=== PATIENT | female | born 1940 | race Two or more races ===

== ENCOUNTER 2018-01-27 13:56 | Outpatient (CLI) | payer OTHER | END 2018-01-27 14:13 | disposition home or self-care (01) | LOC: SONOGRAMA 13:56 | DX: E04.2 Nontoxic multinodular goiter (principal) ==

== ENCOUNTER 2018-02-24 07:53 | Outpatient (CLI) | payer OTHER | END 2018-02-24 08:00 | disposition home or self-care (01) | LOC: SONOGRAMA 07:53 | DX: E04.2 Nontoxic multinodular goiter (principal) ==

== ENCOUNTER 2019-01-16 10:49 | Emergency (ER) | payer OTHER ==
[~2019-01-16] VITALS: Ht 162.6 cm; Wt 54.4 kg
== END 2019-01-16 13:59 | disposition home or self-care (01) ==
LOC: ER 10:49
DX: S42.221A 2-part displaced fracture of surgical neck of right humerus, initial encounter for closed fracture (principal); W18.09XA Striking against other object with subsequent fall, initial encounter; Y93.89 Activity, other specified; Y92.488 Other paved roadways as the place of occurrence of the external cause; Y99.8 Other external cause status

== ENCOUNTER 2019-01-18 11:44 | Outpatient (CLI) | payer OTHER ==
[2019-01-20] MEDS ORDERED: SYNTHROID75 MCG (09:53)
[2019-01-20] MEDS ORDERED: SYNTHROID50 MCG (09:54)
[2019-01-20] MEDS ORDERED: LEVOTHYROXINE PO (11:06)
[2019-01-20] MEDS ORDERED: FOSAMAX PO (11:06)
== END 2019-01-18 15:14 | disposition home or self-care (01) ==
LOC: TOM 11:44
DX: S42.221A 2-part displaced fracture of surgical neck of right humerus, initial encounter for closed fracture (principal)
CPT/HCPCS: 73202; Q9965

== ENCOUNTER 2019-01-23 07:31 | Day surgery (SDC) | payer OTHER ==
[~2019-01-23 07:31] MED LIST: FOSAMAX PO; LEVOTHYROXINE PO; SYNTHROID50 MCG; SYNTHROID75 MCG
== END 2019-01-23 15:15 | disposition home or self-care (01) ==
LOC: CIR.AMB 07:31
DX: S42.231A 3-part fracture of surgical neck of right humerus, initial encounter for closed fracture (principal); S42.291A Other displaced fracture of upper end of right humerus, initial encounter for closed fracture
CPT/HCPCS: 23615; C1776

== ENCOUNTER 2019-02-11 08:23 | Outpatient (CLI) | payer OTHER | END 2019-02-11 13:03 | disposition home or self-care (01) | LOC: LAB 08:23 | DX: D64.89 Other specified anemias (principal); E88.89 Other specified metabolic disorders; D68.8 Other specified coagulation defects; N39.0 Urinary tract infection, site not specified; Z22.322 Carrier or suspected carrier of Methicillin resistant Staphylococcus aureus; B96.89 Other specified bacterial agents as the cause of diseases classified elsewhere ==

== ENCOUNTER 2019-02-14 07:24 | Outpatient (CLI) | payer OTHER | END 2019-02-14 07:32 | disposition home or self-care (01) | LOC: RAD 07:24 | DX: S42.221D 2-part displaced fracture of surgical neck of right humerus, subsequent encounter for fracture with routine healing (principal) ==

== ENCOUNTER → 2019-02-20 | Day surgery (SDC) | payer OTHER | END | disposition home or self-care (01) | LOC: ADM 02-15 11:15 → CIR.AMB 07:00 | DX: T84.84XA Pain due to internal orthopedic prosthetic devices, implants and grafts, initial encounter (principal) ==

== ENCOUNTER → 2019-06-08 07:33 | Outpatient (CLI) | payer OTHER | END | disposition home or self-care (01) | LOC: LAB 07:33 | DX: E56.1 Deficiency of vitamin K (principal); E55.9 Vitamin D deficiency, unspecified; E88.89 Other specified metabolic disorders; M81.8 Other osteoporosis without current pathological fracture; E21.2 Other hyperparathyroidism; M85.88 Other specified disorders of bone density and structure, other site ==

== ENCOUNTER → 2019-06-08 | Outpatient (CLI) | payer OTHER | END | disposition home or self-care (01) | LOC: RAD 09:38 | DX: S40.2 Other superficial injuries of shoulder (principal) ==

== ENCOUNTER → 2019-06-15 10:26 | Outpatient (CLI) | payer OTHER | END | disposition home or self-care (01) | LOC: NUCLEAR 10:26 | DX: M81.0 Age-related osteoporosis without current pathological fracture (principal) ==

== ENCOUNTER 2019-11-25 05:51 | Emergency (ER) | payer OTHER ==
[~2019-11-25] VITALS: Ht 162.6 cm; Wt 50.8 kg
[2019-11-25] MEDS ORDERED: ORASEP SPRAY30 ML MM (07:32)
== END 2019-11-25 07:54 | disposition home or self-care (01) ==
LOC: ER 05:51
DX: J02.9 Acute pharyngitis, unspecified (principal)

== ENCOUNTER 2019-12-07 15:59 | Emergency (ER) | payer OTHER ==
[~2019-12-07] VITALS: Ht 162.6 cm; Wt 49.9 kg
[~2019-12-07 15:59] MED LIST changes: +ORASEP SPRAY30 ML MM
[2019-12-07] MEDS ORDERED: FOSAMAX70 MG (16:14)
[2019-12-07] MEDS ORDERED: CLARITIN10 MG PO (16:51)
[2019-12-07] MEDS ORDERED: ZITHROMAX500 MG PO (16:51)
== END 2019-12-07 17:33 | disposition home or self-care (01) ==
LOC: ER 15:59
DX: R07.0 Pain in throat (principal)

== ENCOUNTER 2021-10-25 08:37 | Outpatient (CLI) | payer OTHER ==
[~2021-10-25 08:37] MED LIST changes: +CLARITIN10 MG PO; +FOSAMAX70 MG; +ZITHROMAX500 MG PO
== END 2021-10-25 08:41 | disposition home or self-care (01) ==
LOC: RAD 08:37
PROVIDERS: ATTEND Surgery
DX: R07.89 Other chest pain (principal); K43.2 Incisional hernia without obstruction or gangrene; Z01.818 Encounter for other preprocedural examination

== ENCOUNTER 2021-11-05 06:16 | Day surgery (SDC) | payer OTHER ==
[2021-11-05] MEDS ORDERED: POLY119PG PO (10:12)
[2021-11-05] MEDS ORDERED: PERCOCET 5-3251 EACH PO (10:12)
[2021-11-05] MEDS ORDERED: NEURONTIN600 M1 PO (10:12)
== END 2021-11-05 13:30 | disposition home or self-care (01) ==
LOC: CIR.AMB 06:16
PROVIDERS: ATTEND Surgery
DX: K40.20 Bilateral inguinal hernia, without obstruction or gangrene, not specified as recurrent (principal); Z20.822 Contact with and (suspected) exposure to COVID-19

== ENCOUNTER 2023-03-01 08:44 | Outpatient (CLI) | payer OTHER ==
[~2023-03-01 08:44] MED LIST changes: +NEURONTIN600 M1 PO; +PERCOCET 5-3251 EACH PO; +POLY119PG PO
== END 2023-03-01 08:46 | disposition home or self-care (01) ==
LOC: RAD 08:44
DX: S52.502B Unspecified fracture of the lower end of left radius, initial encounter for open fracture type I or II (principal)

== ENCOUNTER 2023-05-21 08:18 | Outpatient (CLI) | payer OTHER | END 2023-05-21 08:20 | disposition home or self-care (01) | LOC: RAD 08:18 | DX: S52.37 Galeazzi's fracture (principal) ==

== ENCOUNTER 2025-08-07 12:29 | Outpatient (CLI) | payer OTHER | END 2025-08-07 12:34 | disposition home or self-care (01) | LOC: RAD 12:29 | PROVIDERS: ATTEND Internal Medicine | DX: S60.221A Contusion of right hand, initial encounter (principal) ==

== ENCOUNTER 2025-08-16 07:09 | Outpatient (CLI) | payer OTHER | END 2025-08-16 07:10 | disposition home or self-care (01) | LOC: SONOGRAMA 07:09 | PROVIDERS: ATTEND Internal Medicine | DX: N18.30 Chronic kidney disease, stage 3 unspecified (principal) ==